=== PATIENT | female | born 1980 | race Caucasian/White ===

== ENCOUNTER 2020-12-31 16:10 | Emergency (ER) | payer SELFPAY ==
[~2020-12-31] VITALS: Ht 157.5 cm; Wt 53.1 kg
--- OUTSIDE RECORDS SUMMARY | 2020-12-31 16:20 | XMS REPORT | Clinical Summary ---
Author Author [facility] Organization [facility] Address Unknown Phone Unavailable Care Team Providers Care Recyclable Products Sorter Name Role Phone Madison Pardo PA-C PCP Allergies Comments Active Allergy Reactions Severity Noted Date Sulfamethoxazole-Trimetho Hives 08/31/2018 prim Olanzapine Rash Low 05/18/2012 Medications End Date Status Medication Sig Dispensed Refills Start Date Active SUMAtriptan (IMITREX) 100 Take 100 mg 0 MG tablet by mouth as needed for migraine. After 2 hours, if symptoms persist, may repeat dose x 1. Max 2 doses in 24 hrs. Active naproxen (NAPROSYN) 500 Take 1 tablet 20 tablet 0 MG tablet (500 mg 7 total) by mouth 2 (two) times a day as needed. Active lidocaine (XYLOCAINE) 2 % Apply 30 mL 0 jelly topically as 9 needed. Active ARIPiprazole (ABILIFY) 10 Take 10 mg by 0 MG tablet mouth daily. Active dextroamphetamine-ampheta Take 30 mg by 0 mine (ADDERALL XR) 30 MG mouth every XR 24 hr capsule morning. Active quetiapine fumarate Take by 0 (SEROQUEL ORAL) mouth. Active Problems Not on file Immunizations Name Administration Dates Next Due Tdap 11/24/2016 Social History Date Tobacco Use Types Packs/Day Years Used Current Every Day Smoker Cigarettes 2 15 Smokeless Tobacco: Never Used Tobacco Cessation: Ready to Quit: Yes; C ounseling Given: Yes Comments Alcohol Use Standard Drinks/Week occas Yes 0 (1 standard drink = 0.6 o z pure alcohol) Sex Assigned at Date Recorded Female 10/19/2018 7:46 AM CDT Last Filed Vital Signs Reading Time Taken Comments Vital Sign 114/88 09/14/2019 12:27 PM CDT Blood Pressure 66 09/14/2019 12:27 PM CDT Pulse 36.8 C (98.2 F) 09/14/2019 10:04 AM CDT Temperature 16 09/14/2019 12:27 PM CDT Respiratory Rate 98% 09/14/2019 12:27 PM CDT Oxygen Saturation - - Inhaled Oxygen Concentration 56.7 kg (125 lb) 09/14/2019 10:04 AM CDT Weight 157.5 cm (5' 2") 09/14/2019 10:04 AM CDT Height 22.86 09/14/2019 10:04 AM CDT Body Mass Index Plan of Treatment Health Maintenance Due Date Last Done Comments Tobacco Cessation 1980 Counseling # COVID-19 Vaccine (1) 1991 Influenza Vaccine (#1) 2020 12/27/2010 Td/Tdap# 11/24/2026 11/24/2016 Pneumococcal Vaccine: 07/28/2044 12/27/2010 Pediatrics (0 to 5 Years) and At-Risk Patients (6 to 64 Years) (2 of 2 - PPSV23) Results Not on filefrom Last 3 Months Advance Directives For more information, please contact: [phone] Patient Stump Blower Explanation Type Date Recorded Advance Directives and Living Will Power of Addictions Counselor Assistant Health Care Directive
--- OUTSIDE RECORDS SUMMARY | 2020-12-31 16:20 | XMS REPORT | Clinical Summary ---
Author Author [facility] Organization [facility] Address Unknown Phone Unavailable Care Team Providers Care Equipment Service Engineer Name Role Phone Madison Pardo PA-C PCP Allergies No known active allergies Medications End Date Status Medication Sig Dispensed Refills Start Date Active hydrocortisone-pramoxine Place 1 10 g 0 1 (PROCTOFOAM-HS) rectal applicator 8 foamIndications: Rectal rectally 2 pain (two) times daily. Active Problems Not on file Social History Date Tobacco Use Types Packs/Day Years Used Never Smoker Comments Alcohol Use Standard Drinks/Week No 0 (1 standard drink = 0.6 o z pure alcohol) Sex Assigned at Date Recorded Not on file Last Filed Vital Signs Reading Time Taken Comments Vital Sign 118/73 02/19/2018 1:20 AM PROMOTIONAL REPRESENTATIVE Blood Pressure 71 02/19/2018 1:20 AM PROMOTIONAL REPRESENTATIVE Pulse 36.7 C (98.1 F) 02/18/2018 9:39 PM PROMOTIONAL REPRESENTATIVE Temperature 16 02/19/2018 1:20 AM PROMOTIONAL REPRESENTATIVE Respiratory Rate 100% 02/19/2018 1:20 AM PROMOTIONAL REPRESENTATIVE Oxygen Saturation - - Inhaled Oxygen Concentration 52.3 kg (115 lb 4.8 oz) 02/18/2018 9:39 PM PROMOTIONAL REPRESENTATIVE Weight 165.1 cm (5' 5") 02/18/2018 9:39 PM PROMOTIONAL REPRESENTATIVE Height 19.19 02/18/2018 9:39 PM PROMOTIONAL REPRESENTATIVE Body Mass Index Plan of Treatment Health Maintenance Due Date Last Done Comments Varicella Vaccines (1 of 07/28/1980 2 - 2-dose childhood series) COVID-19 Vaccine (1) 1991 Hepatitis C Screening 07/28/1997 DTaP,Tdap,and Td Vaccines 07/28/1998 (1 - Tdap) MMR Vaccines-Adult 07/28/1998 Cervical Cancer Screening 07/28/2000 Influenza Vaccine (#1) 2020 12/27/2010 Pneumo-Vaccine: 65+Yrs (1 07/28/2044 of 1 - PPSV23) HIB Vaccines Aged Out No longer eligible based on patient's age to complete this topic IPV Vaccines Aged Out No longer eligible based on patient's age to complete this topic Meningococcal Vaccine Aged Out No longer eligib le based on patient's age to complete this topic Pneumo-Vaccine: Peds (0-5 Aged Out No longer el igible based on patient's age to Yrs) & At-Risk Patients complete this topic (6-64 Yrs) Rotavirus Vaccines Aged Out No longer eligible based on patient's age to complete this topic Results Not on filefrom Last 3 Months Insurance Type Payer Benefit Subscriber ID Effective Phone Address Plan / Dates Group [facility] 19 [id number] [address] Advance Directives For more information, please contact: [phone] Patient Probate Paralegal Explanation Type Date Recorded Advance Directives and Living Will Power of Gear And Spline Grinder Care Teams Start Date End Date Equipment Service Engineer Relationship Specialty 02/18/18 Madison Pardo PA-C PCP - General [address] [place] [id number]
[2020-12-31 16:27] VITALS: BP 142/96
[2020-12-31 17:04] LABS: BILIRUBIN,URINE NEGATIVE (NEGATIVE); CLARITY,URINE CLEAR; COLOR,URINE YELLOW; GLUCOSE, URINE (UA) NEGATIVE (NEGATIVE); KETONES,URINE NEGATIVE (NEGATIVE); LEUKOCYTE ESTERASE ,URINE 2+ (NEGATIVE); NITRITE,URINE POSITIVE (NEGATIVE); PROTEIN,URINE NEGATIVE (NEGATIVE)
--- NOTE | 2020-12-31 17:05 | ED Abdominal Pain ---
General Stated Complaint: ABD PAIN/MIGRAINE X 2 WKS History of Present Illness Date Seen by Provider: Dec 31, 2020 Time Seen by Provider: 16:29 Initial Comments Pt arrived by private vehicle with chief complaint of abdominal pain. Pt was alert, oriented x 4 and ambulatory. Pt stated that she has had a migraine and abdominal pain for 2 weeks that is localized at the lower left quadrant. Pt stated that she had burning when urinating and noticed the odor 3 days ago. Pt has had yellow/white vaginal discharge. When asking about her last bowel movement, the patient stated she had one 2 days ago and it was not normal (a little runny). Pt has had had previous surgeries, partial hysterectomy, and emergency . When asking if she is sexually active, the patient stated that she is and it is with the same partner. Pt stated people have been asking if she is and she tells them, "no, I got to poop." Pt stated she was tested for COVID 3 weeks ago and it was negative. Pt has been trying Tylenol (last taken 7 hours ago), Motrin (1 hour ago), warm bath and warm compress. Timing/Duration: Other (2 weeks) Severity/Quality: Burning, Full Location: LLQ, Flank Radiation: No Radiation, LLQ Activities at Onset: Emotional Stress Modifying Factors: Improves With Urinating; Worsens With Vomiting Associated Symptoms: Back Pain; No Nausea/Vomiting (ANNEL GARCIA APRN) Allergies and Home Medications Allergies Coded Allergies: No Allergy Information Available (Unverified , 12/31/20) Patient Home Medication List Home Medication List Reviewed: Yes (ANNEL GARCIA APRN) Cefuroxime Axetil (Cefuroxime) 250 Mg Tablet, 250 MG PO BID Prescribed by: ANNEL GARCIA on 12/31/20 1800 Review of Systems Review of Systems Constitutional: no symptoms reported, see HPI EENTM: No Symptoms Reported Respiratory: No Symptoms Reported; Denies Shortness of Air Cardiovascular: No Symptoms Reported; Denies Chest Pain Gastrointestinal: See HPI, Abdomen Distended, Abdominal Pain, Constipated; Denies Nausea, Denies Vomiting Genitourinary: Burning, Discharge, Flank Pain Musculoskeletal: back pain Skin: no symptoms reported Psychiatric/Neurological: No Symptoms Reported Endocrine: No Symptoms Reported Hematologic/Lymphatic: No Symptoms Reported (ANNEL GARCIA APRN) Physical Exam Vital Signs Vital Signs - First Documented 12/31/20 16:27 Temp 37.3 Pulse 84 Resp 22 B/P (MAP) 142/96 (111) Pulse Ox 98 O2 Delivery Room Air (YOLI FLEMING MD) Vital Signs Capillary Refill : (ANNEL GARCIA APRN) Height/Weight/BMI Height: '" Weight: lbs. oz. kg; BMI Method: General Appearance: WD/WN, no apparent distress Neck: full range of motion, normal inspection Respiratory: no respiratory distress, no accessory muscle use Gastrointestinal: normal bowel sounds, non tender, distended (fullness, bloating) Extremities: normal range of motion, normal capillary refill Back: normal inspection, no vertebral tenderness Neurologic/Psychiatric: alert, oriented x 3 Skin: normal color, warm/dry (ANNEL GARCIA APRN) Progress/Results/Core Measures Results/Orders Lab Results Laboratory Tests Test 12/31/20 14:28 12/31/20 16:45 Range/Units Urine Color YELLOW Urine Clarity CLEAR Urine pH 6.0 5-9 Urine Specific [place] 1.010 L 1.016-1.022 Urine Protein NEGATIVE NEGATIVE Urine Glucose (UA) NEGATIVE NEGATIVE Urine Ketones NEGATIVE NEGATIVE Urine Nitrite POSITIVE H NEGATIVE Urine Bilirubin NEGATIVE NEGATIVE Urine Urobilinogen 0.2 < = 1.0 MG/DL Urine Leukocyte Esterase 2+ H NEGATIVE Urine RBC (Auto) NEGATIVE NEGATIVE Urine RBC NONE /HPF Urine WBC 5-10 H /HPF Urine Crystals NONE /LPF Urine Bacteria FEW H /HPF Urine Casts NONE /LPF Urine Mucus SMALL H /LPF Urine Culture Indicated YES Urine Opiates Screen NEGATIVE NEGATIVE Urine Oxycodone Screen NEGATIVE NEGATIVE Urine Methadone Screen NEGATIVE NEGATIVE Urine Propoxyphene Screen NEGATIVE NEGATIVE Urine Barbiturates Screen NEGATIVE NEGATIVE Ur Tricyclic Antidepressants Screen NEGATIVE NEGATIVE Urine Phencyclidine Screen NEGATIVE NEGATIVE Urine Amphetamines Screen POSITIVE H NEGATIVE Urine Methamphetamines Screen POSITIVE H NEGATIVE Urine Benzodiazepines Screen NEGATIVE NEGATIVE Urine Cocaine Screen NEGATIVE NEGATIVE Urine Cannabinoids Screen NEGATIVE NEGATIVE White Blood Count 13.3 H 4.3-11.0 10^3/uL Red Blood Count 4.01 3.80-5.11 10^6/uL Hemoglobin 12.7 11.5-16.0 g/dL Hematocrit 38 35-52 % Mean Corpuscular Volume 95 80-99 fL Mean Corpuscular Hemoglobin 32 25-34 pg Mean Corpuscular Hemoglobin Concent 33 32-36 g/dL Red Cell Distribution Width 12.7 10.0-14.5 % Platelet Count 411 H 130-400 10^3/uL Mean Platelet Volume 9.1 9.0-12.2 fL Immature Granulocyte % (Auto) 0 % Neutrophils (%) (Auto) 73 42-75 % Lymphocytes (%) (Auto) 18 12-44 % Monocytes (%) (Auto) 8 0-12 % Eosinophils (%) (Auto) 1 0-10 % Basophils (%) (Auto) 0 0-10 % Neutrophils # (Auto) 9.7 H 1.8-7.8 10^3/uL Lymphocytes # (Auto) 2.4 1.0-4.0 10^3/uL Monocytes # (Auto) 1.1 H 0.0-1.0 10^3/uL Eosinophils # (Auto) 0.1 0.0-0.3 10^3/uL Basophils # (Auto) 0.1 0.0-0.1 10^3/uL Immature Granulocyte # (Auto) 0.0 0.0-0.1 10^3/uL Prothrombin Time 13.1 12.2-14.7 SEC INR Comment 1.0 0.8-1.4 Sodium Level 136 135-145 MMOL/L Potassium Level 3.4 L 3.6-5.0 MMOL/L Chloride Level 105 98-107 MMOL/L Carbon Dioxide Level 20 L 21-32 MMOL/L Anion Gap 11 5-14 MMOL/L Blood Urea Nitrogen 9 7-18 MG/DL Creatinine 0.71 0.60-1.30 MG/DL Estimat Glomerular Filtration Rate 91 BUN/Creatinine Ratio 13 Glucose Level 76 70-105 MG/DL Calcium Level 9.0 8.5-10.1 MG/DL Corrected Calcium 8.9 8.5-10.1 MG/DL Total Bilirubin 0.2 0.1-1.0 MG/DL Aspartate Amino Transf (AST/SGOT) 13 5-34 U/L Alanine Aminotransferase (ALT/SGPT) 17 0-55 U/L Alkaline Phosphatase 54 40-136 U/L Total Protein 7.1 6.4-8.2 GM/DL Albumin 4.1 3.2-4.5 GM/DL Lipase 33 8-78 U/L Serum Test, Qualitative NEGATIVE NEGATIVE Serum Alcohol < 10 <10 MG/DL (BRUEGGEMANN,YOLI T MD) Medications Given in ED Current Medications Medications Dose Ordered Sig/[place] Route Start Time Stop Time Status Last Admin Dose Admin Ceftriaxone Sodium 1000 mg/ Sterile Water 10 ml @ 200 mls/hr ONCE ONCE IV 12/31/20 18:00 12/31/20 18:02 DC 12/31/20 18:18 200 MLS/HR Iohexol 100 ml ONCE ONCE IV 12/31/20 17:45 12/31/20 17:46 DC 12/31/20 17:38 67 ML Ketorolac Tromethamine 15 mg ONCE ONCE IVP 12/31/20 18:15 12/31/20 18:16 DC 12/31/20 18:18 15 MG Sodium Chloride 10 ml NEEDED PRN IV 12/31/20 17:45 12/31/20 17:38 10 ML Sodium Chloride 100 ml ONCE ONCE IV 12/31/20 17:45 12/31/20 17:46 DC 12/31/20 17:38 80 ML (YOLI FLEMING MD) Vital Signs/I&O 12/31/20 16:27 Temp 37.3 Pulse 84 Resp 22 B/P (MAP) 142/96 (111) Pulse Ox 98 O2 Delivery Room Air (YOLI FLEMING MD) Departure Communication (Admissions) [facility] REC#: [id number] PT STATUS: REG ER : 1980 PHYSICIAN: ANNEL GARCIA APRN ADMIT DATE: 12/31/20/ER Draft Date of Exam:12/31/20 CT ABDOMEN/PELVIS W PROCEDURE: CT abdomen and pelvis with contrast. TECHNIQUE: Multiple contiguous axial images were obtained through the abdomen and pelvis after administration of intravenous contrast. Auto Exposure Controls were utilized during the CT exam to meet ALARA standards for radiation dose reduction. All CT scans use one or more of the following dose optimizing techniques: automated exposure control, MA and/or KvP adjustment based on patient size and exam type or iterative reconstruction. INDICATION: Bilateral pelvic pain. CORRELATION STUDY: None. FINDINGS: LOWER THORAX: Clear. LIVER: Likely minimal fatty infiltration along the falciform ligament. No definitive focal lesion. GALLBLADDER: Present and unremarkable. No bile duct dilatation. SPLEEN: Scattered calcified granulomas. Otherwise unremarkable. PANCREAS: Unremarkable. ADRENAL GLANDS: Unremarkable. KIDNEYS: Kidneys with normal enhancement. There is prominent appearance of bilateral renal pelves. The ureters do not appear to be abnormally dilated and cannot be well traced. Definitive calcification along their expected course is not suggested. There is delayed contrast filling of the right ureter. ABDOMINAL AORTA: Unremarkable, nonaneurysmal. GASTROINTESTINAL TRACT: Stomach collapsed with resultant gastric wall thickening. A few fluid-filled loops of small bowel are present without findings to suggest an underlying obstruction. Moderate stool through the colon. Appendix not well visualized. What may be the appendix contains probable small appendicoliths. URINARY BLADDER: Unremarkable. REPRODUCTIVE: Post hysterectomy changes. Likely residual ovaries with small cysts. OSSEOUS STRUCTURES: No acute abnormality. OTHER: None. IMPRESSION: 1. Prominent bilateral renal pelves. No definitive ureteric calcification. There is, however, some delayed filling of the right ureter compared to the left. 2. A few fluid-filled loops of small bowel are nonspecific and may reflect a component of mild enteritis. No high degree bowel obstruction. Dictated on workstation # [id number] Dict: 12/31/20 1834 Trans: 12/31/20 1841 [facility] [id number] Interpreted by: BERNADINE RODRIGUES DO Electronically signed by: (ANNEL GARCIA APRN) Impression Primary Impression: Urinary tract infection Additional Impression: Constipation Disposition: 01 HOME, SELF-CARE Condition: Stable Departure-Patient Inst. Decision time for Depature: 17:58 (ANNEL GARCIA APRN) Referrals: NO,LOCAL PHYSICIAN (PCP/Family) Primary Care Physician Patient Instructions: Constipation, Adult (DC), Urinary Tract Infection, Adult ED Add. Discharge Instructions: #1. Increase your water intake and fiber intake. You can take either Colace stool softener 1 tablet twice a day [id number] for the next several days or you can use MiraLAX one capful or packet (depending on which type you by) 2-3 times a day for 2 to 3 days. Take the antibiotic as directed for your urinary tract infection and see your doctor for follow-up next week. Scripts Cefuroxime Axetil (Cefuroxime) 250 Mg Tablet 250 MG PO BID, #10 TAB Prov: ANNEL GARCIA APRN 12/31/20 ATTENDING PHYSICIAN NOTE: I was physically present as attending physician in the emergency department during the care of this patient, but I was not directly involved in the decision making or delivery of care for this patient. (YOLI FLEMING MD) ANNEL GRACIA APRN Dec 31, 2020 17:05 YOLI FLEMING MD Dec 31, 2020 19:10
[2020-12-31 17:06] LABS: BASOPHILS # (AUTO) 0.1 10^3/uL (0.0-0.1); BASOPHILS % (AUTO) 0 % (0-10); EOSINOPHILS # (AUTO) 0.1 10^3/uL (0.0-0.3); EOSINOPHILS % (AUTO) 1 % (0-10); HEMATOCRIT 38 % (35-52); HEMOGLOBIN 12.7 g/dL (11.5-16.0); LYMPHOCYTES # (AUTO) 2.4 10^3/uL (1.0-4.0); LYMPHOCYTES % (AUTO) 18 % (12-44); MEAN CORPUSCULAR HEMOGLOBIN 32 pg (25-34); MEAN CORPUSCULAR HGB CONC 33 g/dL (32-36); MEAN CORPUSCULAR VOLUME 95 fL (80-99); MEAN PLATELET VOLUME 9.1 fL (9.0-12.2); MONOCYTES # (AUTO) 1.1 10^3/uL (0.0-1.0); MONOCYTES % (AUTO) 8 % (0-12); NEUTROPHILS # (AUTO) 9.7 10^3/uL (1.8-7.8); NEUTROPHILS % (AUTO) 73 % (42-75); PLATELET COUNT 411 10^3/uL (130-400); WHITE BLOOD COUNT 13.3 10^3/uL (4.3-11.0)
[2020-12-31 17:13] LABS: ALBUMIN 4.1 GM/DL (3.2-4.5); CHLORIDE 105 MMOL/L (98-107); POTASSIUM 3.4 MMOL/L (3.6-5.0); SODIUM 136 MMOL/L (135-145)
[2020-12-31 17:15] LABS: PROTHROMBIN TIME PATIENT 13.1 SEC (12.2-14.7)
[2020-12-31 17:16] LABS: GLUCOSE 76 MG/DL (70-105); TOTAL PROTEIN 7.1 GM/DL (6.4-8.2)
[2020-12-31 17:17] LABS: BILIRUBIN,TOTAL 0.2 MG/DL (0.1-1.0); CARBON DIOXIDE 20 MMOL/L (21-32)
[2020-12-31 17:18] LABS: AMPHETAMINE SCREEN, URINE POSITIVE (NEGATIVE); BARBITURATE SCREEN URINE NEGATIVE (NEGATIVE); BENZODIAZEPINES SCREEN URINE NEGATIVE (NEGATIVE); CANNABINOID SCREEN, URINE NEGATIVE (NEGATIVE); COCAINE SCREEN URINE NEGATIVE (NEGATIVE); METHADONE STAT NEGATIVE (NEGATIVE); METHAMPHETAMINE SCREEN URINE S POSITIVE (NEGATIVE); OPIATE SCREEN URINE NEGATIVE (NEGATIVE); OXYCODONE STAT NEGATIVE (NEGATIVE); PROPOXYPHENE STAT NEGATIVE (NEGATIVE); TRICYCLIC ANTIDEPRESSANTS SCRE NEGATIVE (NEGATIVE)
[2020-12-31 17:19] LABS: ALKALINE PHOSPHATASE 54 U/L (40-136)
[2020-12-31 17:20] LABS: BACTERIA,URINE FEW /HPF
[2020-12-31 17:20] LABS: CREATININE SERUM 0.71 MG/DL (0.60-1.30); GFR ESTIMATED 91
[2020-12-31 17:21] LABS: BUN/CREATININE RATIO 13
[2020-12-31 17:22] LABS: ALANINE AMINOTRANSFERASE 17 U/L (0-55)
[2020-12-31 17:23] LABS: LIPASE 33 U/L (8-78)
[2020-12-31] MEDS ORDERED: CATHETER FLUSH 10 ML SYR IV PRN (17:45)
[2020-12-31] MEDS ORDERED: NS 100 ML (IVPB) BAG IV ONE (17:45)
[2020-12-31] MEDS ORDERED: HOLD METFORMIN - RECEIVED CONTRAST 20 ML VIAL IV SCH (17:45)
[2020-12-31] MEDS ORDERED: IOHEXOL 350 MG/ML 100 ML (OMNIPAQUE 350) VIAL IV ONE (17:45)
[2020-12-31] MEDS ORDERED: cefTRIAXone 1,000 MG in WATER (STERILE) FOR INJECTION 10 ML IV ONE (18:00)
[2020-12-31] MEDS ORDERED: CEFU250T80 PO (18:00)
[2020-12-31] MEDS ORDERED: KETOROLAC 30 MG/ML VIAL IVP ONE (18:15)
--- NOTE | 2020-12-31 18:42 | Diagnostic Imaging Report ---
PROCEDURE: CT abdomen and pelvis with contrast. TECHNIQUE: Multiple contiguous axial images were obtained through the abdomen and pelvis after administration of intravenous contrast. Auto Exposure Controls were utilized during the CT exam to meet ALARA standards for radiation dose reduction. All CT scans use one or more of the following dose optimizing techniques: automated exposure control, MA and/or KvP adjustment based on patient size and exam type or iterative reconstruction. INDICATION: Bilateral pelvic pain. CORRELATION STUDY: None. FINDINGS: LOWER THORAX: Clear. LIVER: Likely minimal fatty infiltration along the falciform ligament. No definitive focal lesion. GALLBLADDER: Present and unremarkable. No bile duct dilatation. SPLEEN: Scattered calcified granulomas. Otherwise unremarkable. PANCREAS: Unremarkable. ADRENAL GLANDS: Unremarkable. KIDNEYS: Kidneys with normal enhancement. There is prominent appearance of bilateral renal pelves. The ureters do not appear to be abnormally dilated and cannot be well traced. Definitive calcification along their expected course is not suggested. There is delayed contrast filling of the right ureter. ABDOMINAL AORTA: Unremarkable, nonaneurysmal. GASTROINTESTINAL TRACT: Stomach collapsed with resultant gastric wall thickening. A few fluid-filled loops of small bowel are present without findings to suggest an underlying obstruction. Moderate stool through the colon. Appendix not well visualized. What may be the appendix contains probable small appendicoliths. URINARY BLADDER: Unremarkable. REPRODUCTIVE: Post hysterectomy changes. Likely residual ovaries with small cysts. OSSEOUS STRUCTURES: No acute abnormality. OTHER: None. IMPRESSION: 1. Prominent bilateral renal pelves. No definitive ureteric calcification. There is, however, some delayed filling of the right ureter compared to the left. 2. A few fluid-filled loops of small bowel are nonspecific and may reflect a component of mild enteritis. No high degree bowel obstruction. Dictated by: Dictated on workstation # [id number]
== END 2020-12-31 19:10 | disposition home or self-care (01) ==
LOC: ER 16:17
DX: N39.0 Urinary tract infection, site not specified (principal); K59.00 Constipation, unspecified; Z20.822 Contact with and (suspected) exposure to COVID-19
CPT/HCPCS: 74177; 80053; 80306; 81000; 83690; 84703; 85025; 85610; 87077; 87088; 87186; 99284; G0480; 36415; 80320

== ENCOUNTER 2021-12-29 23:04 | Emergency (ER) | payer SELFPAY ==
[~2021-12-29] VITALS: Ht 157.4 cm; Wt 53.0 kg
[~2021-12-29 23:04] MED LIST: CEFU250T80 PO
[2021-12-30] MEDS ORDERED: TRIM/SULFAMETH 160/800 (SEPTRA DS) TAB PO ONE (02:30)
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
[2021-12-30] MEDS ORDERED: SULF-221 PO (02:42)
[2021-12-30] MEDS ORDERED: IBUPROFEN TABLET 200 MG TAB PO ONE (02:45)
[2021-12-30 02:53] VITALS: BP 119/79
--- NOTE | 2021-12-30 06:59 | Diagnostic Imaging Report ---
Indication: Left hand pain. Comparison: None. Discussion: Three views of left hand were obtained. There is soft tissue swelling about the 3rd PIP joint. Along the distal shaft of the 3rd proximal phalanx there is diffuse periosteal thickening and reaction present. Findings are nonspecific though could be seen with an occult fracture or early changes of osteomyelitis. Recommend clinical correlation. No other osseous abnormality identified. Alignment is anatomic. Impression: 1. Diffuse soft tissue swelling of the 3rd finger about the PIP joint. Additional nonspecific periosteal reaction noted along the distal shaft of the left 3rd proximal phalanx. Etiology is indeterminate though this could be seen with trauma or infection. Dictated by: Dictated on workstation # [id number]
== END 2021-12-30 02:57 | disposition home or self-care (01) ==
LOC: EDUNIT# 23:04 → ER 23:05
DX: S69.92XD Unspecified injury of left wrist, hand and finger(s), subsequent encounter (principal); F17.210 Nicotine dependence, cigarettes, uncomplicated; Z28.311 Partially vaccinated for COVID-19; W23.1XXD Caught, crushed, jammed, or pinched between stationary objects, subsequent encounter
CPT/HCPCS: 73130